=== PATIENT | female | born 1995 | race Caucasian/White ===

== ENCOUNTER 2018-10-19 03:55 | Inpatient (IN) ==
[2018-10-19] MEDS ORDERED: Famotidine 20 MG/2 ML VIAL IVP PRN (04:16)
[2018-10-19] MEDS ORDERED: *HR* Nalbuphine 10 MG/ML AMPUL IVP PRN (04:16)
[2018-10-19] MEDS ORDERED: Ondansetron 4 MG/2 ML VIAL IVP PRN (04:16)
[2018-10-19] MEDS ORDERED: Naloxone 0.4 MG/ML INJ IVP PRN (04:16)
[2018-10-19] MEDS ORDERED: Metoclopramide 10 MG/2 ML VIAL IVP PRN (04:16)
[2018-10-19] MEDS ORDERED: miSOPROStol 25 MCG TABLET VG PRN (04:18)
[2018-10-19] MEDS ORDERED: Penicillin G Potassium 5,000,000 UNIT in 0.9 % Sodium Chloride Mini Bag 100 ML IVPB ONE (04:22)
[2018-10-19] MEDS ORDERED: Ringers Solution, Lactated 1,000 ML IVC SCH (04:30)
[2018-10-19 05:00] LABS: Basophils % 0.3 %; Eosinophils # 0.1 K/mcL (0.0-0.6); Eosinophils % 0.9 %; Hematocrit 38.2 % (35.3-44.9); Hemoglobin 12.2 g/dL (11.5-15.4); Immature Granulocytes % 0.3 % (0-4); Lymphocytes # 3.3 K/mcL (0.6-4.6); Lymphocytes % 42.7 %; Mean Corpuscular HGB Conc 31.9 g/dL (31.6-35.5); Mean Corpuscular Hemoglobin 27.2 pg (28.0-33.3); Mean Corpuscular Volume 85.3 fL (83.0-100.0); Mean Platelet Volume 10.2 fL (9.4-12.4); Monocytes # 0.5 K/mcL (0.0-1.3); Monocytes % 5.9 %; Neutrophils # 3.9 K/mcL (1.6-8.9); Platelet Count 194 K/mcL (140-400); Red Blood Count 4.48 M/mcL (3.82-4.97); Segmented Neutrophils % 49.9 %
[2018-10-19 05:05] LABS: Amphetamine Screen,Urine Negative ng/mL (Cutoff=1000); Barbiturate Screen,Urine Negative ng/mL (Cutoff=200); Benzodiazepines Screen,Urine Negative ng/mL (Cutoff=200); Cannabinoid Screen,Urine Negative ng/mL (Cutoff = 50); Cocaine Screen,Urine Negative ng/mL (Cutoff= 300); Opiate Screen,Urine Negative ng/mL (Cutoff=300); Phencyclidine Screen,Urine Negative ng/mL (Cutoff=25)
[2018-10-19] MEDS ORDERED: Terbutaline 1 MG/ML VIAL SQ ONE (05:37)
[2018-10-19 07:06] LABS: Varicella Zoster IgG Antibody Negative
--- NOTE | 2018-10-19 07:33 | Anesthesia Evaluation PreOp ---
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: Denies Any Significant HX Other Medical History: Other (Fletcher Danlos Syndrome) Anesthesia History: No Prior Anesthetic Complications, Past Anesthesia (no reported family hx, previous epidural "good" no comp.) Alcohol Use: none Drug use: none Medications and Allergies Non-Formulary Medication 04/12/18 [History] Vitamin Tablet 04/12/18 [History] Allergy/AdvReac Type Severity Reaction Status Date / Time No Known Allergies Allergy Verified 05/23/18 23:12 Anesthesia Results - Labs 10/19/18 04:28 - Imaging EKG: other (SINUS TACHYCARDIA WITH SHORT [place] INTERVAL POSSIBLE LEFT ATRIAL ENLARGEMENT INCOMPLETE RIGHT BUNDLE BRANCH BLOCK NONSPECIFIC ST & T-WAVE ABNORMALITY ABNORMAL RHYTHM ECG) Anesthesia Exam - HEENT Pupil (Motor): Pupils equal Mallampati: II Teeth: Normal Oral Opening: Greater than 3 - BATCHER OPERATOR LOC: Oriented BATCHER OPERATOR Motor: Normal RUE, Normal LUE, Normal RLE, Normal LLE, Normal Face BATCHER OPERATOR Sensory: Normal: RUE, LUE, RLE, LLE, Face - Cardiac Rhythm: Irregular Murmur: Systolic (1/6) - Pulmonary Breath Sounds: bilateral Clear Respiratory Effort: Symmetrical Anesthesia Assess/Plan ASA Score: 2 Level of consciousness: Cooperative, Oriented Anesthetic Plan: General, Spinal, Epidural (with slower onset tech.) Monitoring Plan: Standard Monitors Recovery Plan: PACU
[2018-10-19] MEDS ORDERED: Epidural Premix (fent/bupiv) 110 ML EP SCH (07:45)
[2018-10-19] MEDS ORDERED: *HR* Ropivacaine/PF 0.2% 20 ML VIAL ONE (07:57)
[2018-10-19] MEDS ORDERED: *HR* FentaNYL (PF) 100 MCG/2 ML VIAL ONE (07:58)
--- NOTE | 2018-10-19 08:16 | Anesthesia Procedures ---
Date of Encounter: 10/19/18 Time of Encounter: 08:06 Procedures: Anesthesia - Epidural/Spinal Patient ID/Chart reviewed: Yes Patient examined: Yes OB Eval: Gestational age: term OB Eval: : 2 OB Eval: Hx Para: 1 OB Eval: Contractions: Non-stressed pattern Consent Obtained: Yes Supplemental Oxygen: None/Room Air Site Prep: Aseptic Technique, Sterile prep and drape, 0.5% Chlorhexidine/Alcohol Patient position: left lateral decubitus Local Anesthetic: Lidocaine 1% Amount of Local Anesthetic used: 2 Touhy Needle Gauge: 18 Touhy Needle Depth (cm): 7 Catheter Depth at Skin (cm): 15 Test Dose (1.5% Lido + Epi): Volume given (mls): 3 Test Dose Result: Negative Loading Dose: Other: 10ml 0.2% rop with 100mcg fent Loading Dose Administered: Thru Touhy Needle Infusion Med: 0.125% Bupivacaine w/ 2 mcg/ml Fentanyl Infusion Rate (mls/hr): [address]: Tegaderm, Tape Interspace Used: L3-L4 Loss of Resistance (YUNIOR): Yes (saline) Blood: No CSF: Yes (25g sprotte purposeful, no INJ) Paresthesia: No Procedure: vss though out procedure, FHR stable closely watch per staff. lateral darian per request.
--- NOTE | 2018-10-19 08:38 | OB/GYN History & Physical ---
Date of Encounter: 10/19/18 Time of Encounter: 08:34 Assessment and Plan (1) Elective induction of labor planned Current visit: Yes Status: Acute 23 y/o @ 39+1 weeks, IOL, GBS bacteriuria Plan: She was given cytotec 25mcg per vagina @ 4:40Am and up to when I arrived at 7:30AM, she's had late decels, about 5 of them. The first was a 4 min decel that required the administration of terbutaline. She has received epidural now and the plan is to allow her to rest and I'll recheck in a few hrs after her PCN for GBS ppx has been infused, I intend to AROM and start pitocin or place a neely balloon, If the FHR doesn't tolerate the process then we can do a PC/S, The patient is agreement, FHT: 150/mod camron/no accels no decels TOCO: irreg History of Present Illness HPI: Ms. Austin is a 23 year old female @ 39+1 week who presents to L&D for elective IOL. She does not report LOF, VB or ctxs, feels good Fm. She had GBS bacteriuria at her early visit. She has [place] Case and has seen [facility] with clearance for delivery here. She also has a h/o PP depression with her last delivery. Past Med Surg Social Fam HX - Past Medical History Medical history: non-contributory Additional medical history: PCOS Psychiatric history: no psych history - Past Surgical History Surgical History: no surgical history - Social History Smoking Status: Never smoker Smokeless Tobacco Status: No Alcohol use: none Drug use: none - Family History Mother Family Member Ethnicity: Non- Living Status: Still Living Hx Family Cardiac Disorders: No Hx Family Respiratory Disorders: No Hx Family Cancer: No Hx Family GI Disorders: No Hx Family Genitourinary Disorders: No Hx Family Endocrine Disorder: No Hx Family Musculoskeletal Disorders: No Hx Family Neuromuscular Disorders: No Hx Family Neurologic Disorders: No Hx Family HEENT Disorders: No Hx Family Autoimmune Disorders: No Hx Family Reproductive Disorders: No Hx Family Psychosocial Disorders: No Hx Family Medical Disorders: No Obstetrical History - Pregnancies : 2 Para: 1 Medications and Allergies Non-Formulary Medication 04/12/18 [History] Vitamin Tablet 04/12/18 [History] Allergy/AdvReac Type Severity Reaction Status Date / Time No Known Allergies Allergy Verified 05/23/18 23:12 Review of System OB All systems PM: reviewed and no additional remarkable complaints except as stated Exam - Constitutional Constitutional: well nourished - HEENT HEENT: PERRL - Neck Neck exam: full ROM - Lungs Respiratory exam: CTAB - Cardiovascular Cardiovascular exam: RRR - Abdomen Abdomen: Present: gravid - Cervix Dilation: 2 Effacement: 70 Station: -1 Results Result Diagrams: 10/19/18 04:28 Abnormal lab results MCH 27.2 pg (28.0-33.3) L 10/19/18 04:28 RDW 15.0 % (11.5-14.5) H 10/19/18 04:28 VZV IgG Antibody Negative L 10/19/18 04:25 All other labs normal. - VTE Reasons for not Prescribing Prophylaxis: Treatment not Indicated - Low risk for VTE
[2018-10-19] MEDS: Penicillin G Potassium 2,500,000 UNIT in 0.9 % Sodium Chloride 100 ML IVPB SCH ×2 (08:45→12:45)
--- NOTE | 2018-10-19 10:19 | OB Labor Progress Note ---
Date of Encounter: 10/19/18 Time of Encounter: 10:16 Labor Progress Note - Subjective Subjective: patient is doing well s/p epidural - Vital Signs Vital Signs: VSS - Cervix Cervix: 4-5cm/80%/-1 - Heart Tones Heart Tones: 150/mod camron/+accels no decels - Breese Breese: irreg - Plan Plan: Patient AROM'ed with clear fluid, ok to start pitocin, s/p PCN for GBS ppx, anticipate
[2018-10-19] MEDS ORDERED: Oxytocin 20 units/ LR 1000 mL 20 UNIT/1,000 ML BAG IVC ONE (11:20)
[2018-10-19] MEDS ORDERED: Oxytocin 20 units/ LR 1000 mL 20 UNIT/1,000 ML BAG IVC SCH ×2 (11:30→16:09)
--- NOTE | 2018-10-19 12:35 | OB Labor Progress Note ---
Date of Encounter: 10/19/18 Time of Encounter: 12:31 Labor Progress Note - Subjective Subjective: Patient is doing well, just had a spont decel - Vital Signs Vital Signs: VSS - Cervix Cervix: 6-7cm/90%/+1 - Heart Tones Heart Tones: 150/mod camron/+accels, spont decel x 1 - [place]: irreg - Interventions Interventions: pitocin stopped, tracing recovered, anticipate
--- NOTE | 2018-10-19 15:51 | OB/GYN Procedure Note ---
Delivery - Delivery Date: 10/19/18 Provider: Kranthi Bermeo Intrapartum events: none Delivery induction: AROM, oxytocin, misoprostol Delivery monitor: external FHT, external uterine Quantitated Blood Loss: 30 - (s) A Delivery Date: 10/19/18 Infant Delivery Time: 15:22 Presentation: vertex Position: [place] Gender: Female Viability: Viable Weight Gram: 3.295 kg at 1 minute: 9 at 5 mins: 9 Shoulder Dystocia: not encountered Placenta: complete extraction Cord: 3 umbilical vessels - Repair Episiotomy: none Laceration Description: Perineal - 1st Degree - Complications Delivery complications: none Delivery comments: Clementine is a 23 y/o now who delivered a viable female infant weight 3295g (7 lbs 4oz) @ 1522hrs. Infant delivered [place]ER[place], APGARs 9/9. Cord clamped and cut. Placenta delivered @ 1526hrs. 1st degree laceration repaired with 3-0 vicryl. EBL 30ml. Mother and stable. - Disposition Mom disposition: stable in LDR [place] disposition: stable in LDR
[2018-10-19] MEDS ORDERED: Rho Immune Globulin 1,500 UNIT SYRINGE IM PRN (16:09)
[2018-10-19] MEDS ORDERED: Measles/Mumps/Rubella Vacc 0.5 ML VIAL SQ PRN (16:09)
[2018-10-19] MEDS: Ibuprofen 600 MG TABLET PO PRN (19:49)
[2018-10-20 08:33] VITALS: BP 116/79
[2018-10-20] MEDS: Ibuprofen 600 MG TABLET PO PRN ×2 (08:35→14:26)
--- NOTE | 2018-10-20 08:52 | Discharge Summary ---
Date of Encounter: 10/20/18 Time of Encounter: 08:50 - Discharge Diagnosis (1) Vaginal delivery Priority: Primary Status: Acute Comments: S/P Vaginal Delivery Day 1 Pain well controlled VSS Lochia light and without clots Voiding without difficulty Tolerating regular diet and passing flatus Bottle Feeding Discharge today POC per consult with Dr Huston - Discharge Medications Prescriptions: New Docusate [Colace] 100 mg PO BID #30 capsule Ferrous Sulfate 325 mg PO DAILY #90 tablet Ibuprofen [Motrin] 600 mg PO Q6HR PRN #30 tablet PRN Reason: Cramping Continued Pediatric Multivit Comb. No.49 [Flintstones Gummies] 1 each PO DAILY Home Medications: Pediatric Multivit Comb. No.49 [Flintstones Gummies] 1 each PO DAILY 10/19/18 [History] Docusate [Colace] 100 mg PO BID #30 capsule 10/20/18 [Rx] Ferrous Sulfate 325 mg PO DAILY #90 tablet 10/20/18 [Rx] Ibuprofen [Motrin] 600 mg PO Q6HR PRN #30 tablet 10/20/18 [Rx] Allergies/Adverse Reactions: Allergy/AdvReac Type Severity Reaction Status Date / Time No Known Allergies Allergy Verified 05/23/18 23:12 Data Procedures and tests throughout hospitalization: Laboratory Tests 10/19/18 10/19/18 10/19/18 04:25 04:28 04:28 WBC 7.8 RBC 4.48 Hgb 12.2 Hct 38.2 MCV 85.3 MCH 27.2 L MCHC 31.9 RDW 15.0 H Plt Count 194 MPV 10.2 Immature Gran % 0.3 Seg Neutrophils % 49.9 Lymphocytes % 42.7 Monocytes % 5.9 Eosinophils % 0.9 Basophils % 0.3 Neutrophils # 3.9 Lymphocytes # 3.3 Monocytes # 0.5 Eosinophils # 0.1 Basophils # 0.0 Urine Opiates Screen Ur Barbiturates Screen Ur Phencyclidine Scrn Ur Amphetamines Screen U Benzodiazepines Scrn Urine Cocaine Screen U Marijuana (THC) Screen Ur Drug Screen Interp T.pallidum Ab Interpret Negative Hep Bs Antigen Nonreactive VZV IgG Antibody Negative L 10/19/18 04:28 WBC RBC Hgb Hct MCV MCH MCHC RDW Plt Count MPV Immature Gran % Seg Neutrophils % Lymphocytes % Monocytes % Eosinophils % Basophils % Neutrophils # Lymphocytes # Monocytes # Eosinophils # Basophils # Urine Opiates Screen Negative Ur Barbiturates Screen Negative Ur Phencyclidine Scrn Negative Ur Amphetamines Screen Negative U Benzodiazepines Scrn Negative Urine Cocaine Screen Negative U Marijuana (THC) Screen Negative Ur Drug Screen Interp See Below T.pallidum Ab Interpret Hep Bs Antigen VZV IgG Antibody Date of admission: 10/19/18 03:55 Primary care physician: PCP NONE Consults: 10/19/18 16:09 Consult to [facility] [CONS] Routine Comment: Vaginal delivery, consult needed Discharging clinician: Janine Washington Anticipated date of discharge: 10/20/18 - Patient Status Disposition: Home, Self-Care Condition: Good Functional capacity at discharge: independent ambulation Overall status at discharge: patient is progressing back to baseline - Discharge Instructions Follow Up With: NONE,PCP [Primary Care Provider] - Kranthi Bermeo MD [Partnered Physician] - - Diet and Activity Activity: increase activity as tolerated Diet: regular diet Hospital Course Reason for admission: induction of labor, IUP at term Delivery: Episiotomy: none Laceration: 1st degree Other procedures: none complications: none Discharge diagnosis: IUP at term delivered [place] baby: female Time Attestation: Total time spent providing and/or coordinating discharge services: Time Spent: Less than 30 minutes Exam - Constitutional Vitals: Temp Pulse Resp BP Pulse Ox 97.6 F 76 16 116/79 99 10/20/18 08:33 10/20/18 08:33 10/20/18 08:33 10/20/18 08:33 10/20/18 08:33 General appearance IM: cooperative, A&O X 3, pleasant - Respiratory Respiratory exam: Present: CTAB - Cardiovascular Cardiovascular exam IM: Present: RRR, +S1, +S2 - GI/Abdominal GI/Abdominal exam IM: normal bowel sounds, soft - Rectal Rectal exam: deferred - Uterine Tone: Firm Uterus Position: At Umbilicus, Midline - Extremities Exam Extremities exam IM: Present: normal capillary refill, normal inspection, radial pulses palpable and symmetrical - Neurological Exam Neurological exam: alert, oriented X3
[2018-10-20] MEDS ORDERED: [UNRECOGNIZED DRUG - REMARK] PO SCH (09:00)
[2018-10-20] MEDS ORDERED: Prenatal Vit/FA 1 EACH TABLET PO SCH (09:00)
[2018-10-20 10:32] LABS: Basophils % 0.2 %; Eosinophils # 0.1 K/mcL (0.0-0.6); Hematocrit 39.5 % (35.3-44.9); Hemoglobin 12.1 g/dL (11.5-15.4); Immature Granulocytes % 0.3 % (0-4); Lymphocytes # 2.5 K/mcL (0.6-4.6); Lymphocytes % 27.2 %; Mean Corpuscular HGB Conc 30.6 g/dL (31.6-35.5); Mean Corpuscular Hemoglobin 27.3 pg (28.0-33.3); Mean Corpuscular Volume 89.2 fL (83.0-100.0); Mean Platelet Volume 10.6 fL (9.4-12.4); Monocytes # 0.6 K/mcL (0.0-1.3); Monocytes % 6.1 %; Neutrophils # 5.9 K/mcL (1.6-8.9); Platelet Count 210 K/mcL (140-400); Red Blood Count 4.43 M/mcL (3.82-4.97); Red Cell Distribution Width 15.5 % (11.5-14.5); Segmented Neutrophils % 65.2 %
== END 2018-10-20 16:10 | disposition home or self-care (01) | DRG 807 ==
LOC: 1NENULAB 03:55 → 1NENUOBS 18:12
PROVIDERS: ADMIT Student in an Organized Health Care Education/Training Program; ATTEND Student in an Organized Health Care Education/Training Program